=== PATIENT | male | born 1960 | race Caucasian/White ===

== ENCOUNTER 2021-01-23 18:46 | Emergency (ER) | payer OTHER ==
[2021-01-23] MEDS ORDERED: NORCO 5-325 TA1 EACH PO (20:16)
== END 2021-01-23 20:26 | disposition home or self-care (01) ==
LOC: FER 18:46
DX: S82.302A Unspecified fracture of lower end of left tibia, initial encounter for closed fracture (principal); I10 Essential (primary) hypertension; W22.8XXA Striking against or struck by other objects, initial encounter; Y92.89 Other specified places as the place of occurrence of the external cause; Y99.0 Civilian activity done for income or pay
CPT/HCPCS: 73590